=== PATIENT | female | born 2005 | race Caucasian/White ===

== ENCOUNTER 2025-02-06 13:59 | Emergency (ER) | payer OTHER ==
[~2025-02-06] VITALS: Ht 157.5 cm; Wt 82.8 kg
[2025-02-06 14:06] VITALS: BP 130/84; PULSE 111; RESP 20; TEMP 98.1; O2SAT 98
[2025-02-06] MEDS: bacitracin 15gm ointment TP ONE (15:07)
[2025-02-06] MEDS: LIDOcaine 1% W/epiNEPHrine 1:100,000 20ml vial IJ ONE (15:07)
--- NOTE | 2025-02-06 15:46 | Physician Documentation ---
History of Present Illness ~ Chief Complaint: Laceration Stated Complaint: FINGER LAC Time Seen by MD: 14:12 OK to notify your PCP?: Yes Source: patient Mode of Arrival: POV Exam Limitations: no limitations HPI 20-year-old female presents with her father for laceration to left tip of thumb. She reports she was working at [employer] and was slicing bread when she accidentally sliced her finger instead. She reports that she has prior injury to this thumb doing the same thing a couple of years ago and received a tetanus vaccine at that time. Bleeding controlled with pressure. Medication Reconciliation Allergies: Coded Allergies: No Known Allergies (Unverified , 02/06/25) Past Medical History Past Medical History: No Pertinent History Review of Systems All Other Systems at this time: Reviewed and Negative Physical Exam Vital Signs: RN Vital Signs have been reviewed: Yes, Temperature: 98.1, Source: Temporal, Heart Rate: 111, Respiratory Rate: 20, BP: 130/84, Pulse Oximetry: 98, Weight: 82.800 Oxygen Flow Rate: 0 Pulse Oximetry Reflects: adequate oxygenation Physical Exam General: Alert, no distress. HEENT: No injection, moist mucous membranes. Neck: Full range of motion. Respiratory: No respiratory distress, equal chest rise and fall. Chest: No accessory muscle use. Cardiovascular: Regular rate and rhythm. Gastrointestinal: Nondistended. Extremities: Normal range of motion, no deformity. Neurologic: Oriented x4. Psychiatric: Normal mood and affect. Skin: 1.5 cm superficial laceration to tip of left thumb with some bleeding, fingernail intact. Or Procedures Procedure Note Obtained verbal consent from patient for laceration repair. Laceration/Wound Repair Laceration : Location: Left thumb Length (cm): 1.5 Anesthesia: Lidocaine w/ Epi Volume Anesthetic (mls): 1 Prep: irrigated by nurse Debrided: minimal Undermining: none Margins: flaps aligned Foreign Body: not identified Repaired: skin Wound Repaired With: sutures Suture Size/Type: 4-0, ethilon Number of Superficial Sutures: 3 Layer Closure?: No Dressing Applied: simple, bacitracin, non-adherent Splint Applied?: No Sling Applied?: No Tolerated Procedure Well?: yes, no complications Progress Results/Orders Reviewed/noted all lab results: Yes Results/Orders Orders - TANA SORTO Laceration/I&D Tray Set Up (02/06/25 14:54) Completed Orders - TANA SORTO Lidocaine 1% W/Epi 1:100,000 (Xylocaine (02/06/25 14:55) Bacitracin Ointment (Bacitracin Ointment (02/06/25 14:55) Vital Signs 02/06/25 14:06 Temp 98.1 Pulse 111 Resp 20 B/P (MAP) 130/84 Pulse Ox 98 O2 Flow Rate 0 Medical Decision Making Additional information obtaine: family Findings A simple laceration to her right thumb. We discussed the risks and benefits of sutures versus glue. She had a smaller laceration to the same thumb years ago and it was glued but the glue did not stay very well. She is requesting to have sutures placed instead. I placed 3 simple interrupted sutures to the tip of her left thumb. She had good CSM and good range motion in that left thumb. I applied bacitracin and a Band-Aid afterwards. Last tetanus was 2-3 years ago so not indicated today. We discussed aftercare instructions as well as return instructions. Differential Dx:Considerations: Include: Contusion, Hematoma, Neurovascular injury, Retained foreign body Departure Disposition: 01 HOME / SELF CARE / HOMELESS Impression: Primary Impression: Laceration Condition: Stable Discharge Instructions: Laceration Care, Adult, [id number] Additional Instructions: You have 3 sutures which will need to be removed in 10 days. Please keep wound clean and dry. You can use bacitracin to the wound. Monitor for any signs of infection. Return back here for any new or worsening symptoms. You can return back here to have the sutures removed or go to primary care or urgent care. Referrals: NO PRIMARY CARE PROVIDER (PCP) Education Educated: Patient, Family Educated regarding: diagnosis, treatment, prognosis, need for follow up Additional Comment Medical Screen Exam This patient recieved a medical screening examination. After reviewing the individual's medical complaints with presenting symptoms and performing an appropriate physical examination, it was determined that no immediate life- threatening emergency medical condition is present. This individual is also not a women having contractions. Signature Scribe Signature: . Attestation: Scribed for Tana Sorto Graduate Civil Engineer by Tana Gusman NP . 02/06/25 15:57 Parts of this note were created using [employer] voice recognition software program. While efforts were made to correct any mistakes made by this voice recognition software program, nonsensical phrases may remain in this note. In addition, there may be errors and syntax, grammar, content and spelling. TANA SORTO [facility] Feb 06, 2025 15:46
== END 2025-02-06 15:52 | disposition home or self-care (01) ==
LOC: ER 14:00
DX: S61.012A Laceration without foreign body of left thumb without damage to nail, initial encounter (principal); X58.XXXA Exposure to other specified factors, initial encounter; Y93.89 Activity, other specified; Y92.89 Other specified places as the place of occurrence of the external cause; Y99.8 Other external cause status
CPT/HCPCS: 12001; 99282; A6449